=== PATIENT | male | born 1960 | race Caucasian/White ===

== ENCOUNTER → 2018-04-19 15:48 | Outpatient (CLI) | payer OTHER, SELFPAY ==
--- NOTE | 2018-04-19 16:21 | MRI_ITS ---
STUDY: MRI LUMBAR SPINE WITHOUT CONTRAST REASON FOR EXAM: Male, 58 years old. Low back pain with numbness in the legs bilaterally with standing. TECHNIQUE: Standardized fat and water weighted pulse sequences were obtained in the sagittal and axial planes. # of Images: 127 COMPARISON: None FINDINGS: T12-L1: Normal endplates. Normal disc height, hydration and morphology. Normal bilateral facet joints. Normal central canal and bilateral lateral recesses. Normal bilateral intervertebral neural foramina. Normal lumbar lordosis. There is no substantial scoliosis. Normal conus medullaris that terminates at the L1 level. Multiple Schmorl's nodes. L1-2: Bulging annulus and bilateral facet hypertrophy with moderate central canal stenosis. L2-3: Bulging annulus and bilateral facet hypertrophy with moderate to severe central canal stenosis and mild bilateral foraminal stenoses. L3-4: Bulging annulus and bilateral facet hypertrophy with moderate central canal stenosis and moderate to severe bilateral foraminal stenoses. L4-5: Bulging annulus and bilateral facet hypertrophy with moderate to severe central canal stenosis and severe left and moderate right foraminal stenoses. L5-S1: Bulging annulus and bilateral facet hypertrophy without compressive sequelae. Normal visualized sacral ala. Normal visualized paraspinous soft tissue structures. MRI/Spine Lumbar (Routine) IMPRESSION: Multilevel degenerative disease as described. Moderate to severe central canal stenoses at L2-3 and L4-5. Severe left foraminal stenosis at L4-5. Electronically Signed: Anoop Owens MD at 23:50 EDT Tel , Service support ,
== END ==
PROVIDERS: Family Provider Family Medicine; PCP Family Medicine; Referring Provider Anesthesiology Pain Medicine; Visit Provider Anesthesiology Pain Medicine
DX: M54.9 Dorsalgia, unspecified (principal); M79.606 Pain in leg, unspecified
CPT/HCPCS: 72148